=== PATIENT | female | born 1950 | race Hispanic/Latino ===

== ENCOUNTER 2021-12-29 22:43 | Emergency (ER) | payer MEDICARE ==
[~2021-12-29] VITALS: Ht 162.6 cm; Wt 99.3 kg
[2021-12-29] MEDS ORDERED: MIDAZOLAM HCL 5 MG/ML 2ML VIAL IV ONE (23:45)
[2021-12-30] MEDS ORDERED: HYDROMORPHONE 1 MG INJ IVP ONE
[2021-12-30] MEDS ORDERED: MORPHINE 4 MG SYG ONE (01:05)
[2021-12-30] MEDS ORDERED: ONDANSETRON 4MG INJ ONE (01:05)
[2021-12-30] MEDS ORDERED: IBUP-1493 PO (01:36)
[2021-12-30 02:38] VITALS: BP 117/69
== END 2021-12-30 03:03 | disposition home or self-care (01) ==
LOC: EDH 22:43
DX: M24.412 Recurrent dislocation, left shoulder (principal); E03.9 Hypothyroidism, unspecified; Z98.890 Other specified postprocedural states; W19.XXXA Unspecified fall, initial encounter; Y93.89 Activity, other specified; Y92.89 Other specified places as the place of occurrence of the external cause; Y99.8 Other external cause status
CPT/HCPCS: 99284; 23650; 73030; 96374; 96375; 73020; J1170; J2405; J2270; J2250